=== PATIENT | female | born 1955 | race Two or more races ===

== ENCOUNTER 2017-05-31 20:27 | Inpatient (IN) | payer MEDICAID ==
[~2017-05-31] VITALS: Ht 149.9 cm; Wt 71.3 kg
[~2017-05-31 20:27] MED LIST: ALEN70TA5 PO; ATOR20TA9 PO; CHOL500045 PO; SITA100T PO
[2017-05-31] MEDS ORDERED: SODIUM CHLORIDE FLUSH 10ML SYR IVF ONE ×2 (21:00)
[2017-05-31] MEDS ORDERED: ACETAMINOPHEN 325 MG TABLET PO ONE (21:00)
[2017-05-31] MEDS ORDERED: SODIUM CHLORIDE 0.9% 1,000ML IVBOLUS ONE ×2 (21:00→22:30)
[2017-05-31] MEDS ORDERED: ONDANSETRON 2MG/ML, 2ML IVPush ONE (21:00)
[2017-05-31 21:08] LABS: RAPID INFLUENZA A Negative (Negative); RAPID INFLUENZA B Negative (Negative)
[2017-05-31] MEDS ORDERED: ACETAMINOPHEN 325 MG TABLET ONE (21:08)
[2017-05-31 21:13] LABS: PH, VENOUS 7.443 pH (7.320-7.420)
[2017-05-31] MEDS ORDERED: METF500T27 PO (21:13)
[2017-05-31 21:15] LABS: BASOPHILS # (AUTO) 0.01 x10^3/uL (0-0.1); BASOPHILS % (AUTO) 0 % (0-1); EOSINOPHILS % (AUTO) 0 % (1-7); LYMPHOCYTES # (AUTO) 0.99 x10^3/uL (1-3.4); LYMPHOCYTES % (AUTO) 6 % (22-44); MD NO; MEAN CORPUSCULAR HEMOGLOBIN 25.6 pg (27.0-34.8); MEAN CORPUSCULAR HGB CONC 32.5 g/dL (32.4-35.8); MEAN CORPUSCULAR VOLUME 78.6 fL (80-100); MEAN PLATELET VOLUME 10.1 fL (7.4-10.4); MONOCYTES # (AUTO) 0.72 x10^3/uL (0.2-0.8); MONOCYTES % (AUTO) 5 % (2-9); NEUTROPHILS # (AUTO) 14.14 x10^3/uL (1.8-6.8); NEUTROPHILS % (AUTO) 89 % (42-75); PLATELET COUNT 213 x10^3/uL (130-400); RED BLOOD COUNT 4.82 x10^6/uL (3.82-5.3); RED CELL DISTRIBUTION WIDTH 15.4 % (9.6-15.2)
[2017-05-31 21:16] LABS: ANION GAP 11 mmol/L (5-15); CALCIUM 8.5 mg/dL (8.5-10.1); CHLORIDE 95 mmol/L (98-107)
[2017-05-31 21:22] LABS: ACETONE, SERUM Moderate(40mg/dL) mg/dL (Negative)
[2017-05-31] MEDS ORDERED: IBUPROFEN 200 MG TABLET PO ONE (22:00)
[2017-05-31] MEDS ORDERED: IBUPROFEN 200 MG TABLET ONE (22:08)
[2017-05-31 22:17] LABS: MICROSCOPIC AUTO
[2017-05-31 22:19] LABS: CULTURE INDICATED? YES
[2017-05-31] MEDS ORDERED: CEFTRIAXONE PMX 1GM/50ML 50 ML ONE (22:24)
[2017-05-31] MEDS ORDERED: CEFTRIAXONE PMX 1GM/50ML 50 ML IV ONE (22:30)
[2017-05-31] MEDS ORDERED: ASPI-496 PO (22:37)
[2017-05-31] MEDS ORDERED: INSULIN DETEMIR 100 UNITS/ML, PEN SQ-INSULIN SCH (23:00)
[2017-05-31] MEDS ORDERED: ONDANSETRON 2MG/ML, 2ML IVPush PRN (23:00)
[2017-05-31] MEDS ORDERED: hydrALAzine 20 MG/ML, 1ML IVPush PRN (23:00)
[2017-05-31] MEDS: CEFTRIAXONE PMX 1GM/50ML 50 ML IV SCH (23:00)
[2017-05-31] MEDS ORDERED: ENOXAPARIN 40 MG/0.4 ML ONE (23:14)
[2017-05-31] MEDS ORDERED: NS + 20MEQ KCL 1,000 ML IV ONE (23:14)
[2017-05-31] MEDS: NS + 20MEQ KCL 1,000 ML IV SCH (23:29)
[2017-05-31] MEDS: ENOXAPARIN 40 MG/0.4 ML SQ SCH (23:29)
[2017-05-31 23:57] VITALS: BP 107/69
[2017-06-01] MEDS: INSULIN ASPART 100 UNITS/ML, PEN SQ-INSULIN SCH ×5 (00:53→21:35)
[2017-06-01 01:30] VITALS: BP 107/69
[2017-06-01 01:31] VITALS: BP 107/69
[2017-06-01 05:42] LABS: BASOPHILS # (AUTO) 0.04 x10^3/uL (0-0.1); BASOPHILS % (AUTO) 0 % (0-1); EOSINOPHILS # (AUTO) 0.02 x10^3/uL (0-0.4); EOSINOPHILS % (AUTO) 0 % (1-7); LYMPHOCYTES # (AUTO) 2.09 x10^3/uL (1-3.4); LYMPHOCYTES % (AUTO) 14 % (22-44); MD NO; MEAN CORPUSCULAR HEMOGLOBIN 25.8 pg (27.0-34.8); MEAN CORPUSCULAR HGB CONC 32.7 g/dL (32.4-35.8); MEAN CORPUSCULAR VOLUME 78.8 fL (80-100); MEAN PLATELET VOLUME 9.9 fL (7.4-10.4); MONOCYTES # (AUTO) 0.59 x10^3/uL (0.2-0.8); MONOCYTES % (AUTO) 4 % (2-9); NEUTROPHILS # (AUTO) 11.93 x10^3/uL (1.8-6.8); NEUTROPHILS % (AUTO) 81 % (42-75); PLATELET COUNT 210 x10^3/uL (130-400); RED BLOOD COUNT 4.53 x10^6/uL (3.82-5.3); RED CELL DISTRIBUTION WIDTH 15.6 % (9.6-15.2)
[2017-06-01 05:47] LABS: CHLORIDE 106 mmol/L (98-107)
[2017-06-01 06:33] LABS: ANION GAP 11 mmol/L (5-15); CALCIUM 7.7 mg/dL (8.5-10.1)
[2017-06-01] MEDS: NS + 20MEQ KCL 1,000 ML IV SCH (07:00)
[2017-06-01 07:35] VITALS: BP 122/59
[2017-06-01] MEDS: ASPIRIN 81 MG TABLET EC PO SCH (08:12)
[2017-06-01] MEDS ORDERED: metFORMIN XR 500 MG TAB.ER.24H PO SCH (09:00)
[2017-06-01] MEDS: INSULIN DETEMIR 100 UNITS/ML, PEN SQ-INSULIN SCH (09:21)
[2017-06-01 13:14] VITALS: BP 131/69
[2017-06-01] MEDS: ACETAMINOPHEN 325 MG TABLET PO PRN (18:02)
[2017-06-01 20:21] VITALS: BP 103/67
[2017-06-01] MEDS: CEFTRIAXONE PMX 1GM/50ML 50 ML IV SCH (23:03)
[2017-06-01] MEDS: ENOXAPARIN 40 MG/0.4 ML SQ SCH (23:04)
[2017-06-02 05:14] LABS: BASOPHILS # (AUTO) 0.02 x10^3/uL (0-0.1); BASOPHILS % (AUTO) 0 % (0-1); EOSINOPHILS # (AUTO) 0.02 x10^3/uL (0-0.4); EOSINOPHILS % (AUTO) 0 % (1-7); LYMPHOCYTES # (AUTO) 1.63 x10^3/uL (1-3.4); LYMPHOCYTES % (AUTO) 12 % (22-44); MD NO; MEAN CORPUSCULAR HEMOGLOBIN 26.2 pg (27.0-34.8); MEAN CORPUSCULAR HGB CONC 33.1 g/dL (32.4-35.8); MEAN PLATELET VOLUME 9.7 fL (7.4-10.4); MONOCYTES % (AUTO) 5 % (2-9); NEUTROPHILS # (AUTO) 11.08 x10^3/uL (1.8-6.8); NEUTROPHILS % (AUTO) 82 % (42-75); PLATELET COUNT 210 x10^3/uL (130-400); RED BLOOD COUNT 4.32 x10^6/uL (3.82-5.3); RED CELL DISTRIBUTION WIDTH 15.7 % (9.6-15.2)
[2017-06-02] MEDS: INSULIN ASPART 100 UNITS/ML, PEN SQ-INSULIN SCH ×4 (06:55→22:18)
[2017-06-02 08:29] VITALS: BP 119/74
[2017-06-02] MEDS: INSULIN DETEMIR 100 UNITS/ML, PEN SQ-INSULIN SCH (09:26)
[2017-06-02] MEDS: ASPIRIN 81 MG TABLET EC PO SCH (09:26)
[2017-06-02 14:13] VITALS: BP 111/63
[2017-06-02 20:13] VITALS: BP 138/61
[2017-06-02] MEDS: CEFTRIAXONE PMX 1GM/50ML 50 ML IV SCH (22:34)
[2017-06-03] MEDS: ACETAMINOPHEN 325 MG TABLET PO PRN ×2 (01:26→21:18)
[2017-06-03 01:36] VITALS: BP 115/60
[2017-06-03 02:52] LABS: BASOPHILS # (AUTO) 0.02 x10^3/uL (0-0.1); BASOPHILS % (AUTO) 0 % (0-1); EOSINOPHILS # (AUTO) 0.04 x10^3/uL (0-0.4); EOSINOPHILS % (AUTO) 0 % (1-7); LYMPHOCYTES # (AUTO) 1.84 x10^3/uL (1-3.4); LYMPHOCYTES % (AUTO) 16 % (22-44); MD NO; MEAN CORPUSCULAR HEMOGLOBIN 25.9 pg (27.0-34.8); MEAN CORPUSCULAR HGB CONC 32.8 g/dL (32.4-35.8); MEAN CORPUSCULAR VOLUME 78.9 fL (80-100); MEAN PLATELET VOLUME 9.9 fL (7.4-10.4); MONOCYTES # (AUTO) 0.92 x10^3/uL (0.2-0.8); MONOCYTES % (AUTO) 8 % (2-9); NEUTROPHILS # (AUTO) 9.05 x10^3/uL (1.8-6.8); NEUTROPHILS % (AUTO) 76 % (42-75); PLATELET COUNT 263 x10^3/uL (130-400); RED CELL DISTRIBUTION WIDTH 15.1 % (9.6-15.2)
[2017-06-03 02:59] LABS: ANION GAP 8 mmol/L (5-15); CALCIUM 8.2 mg/dL (8.5-10.1); CHLORIDE 105 mmol/L (98-107); CREATININE 0.97 mg/dL (0.55-1.02)
[2017-06-03] MEDS: INSULIN ASPART 100 UNITS/ML, PEN SQ-INSULIN SCH ×4 (07:49→21:00)
[2017-06-03 07:50] VITALS: BP 116/63
[2017-06-03] MEDS: ASPIRIN 81 MG TABLET EC PO SCH (07:50)
[2017-06-03] MEDS: INSULIN DETEMIR 100 UNITS/ML, PEN SQ-INSULIN SCH (07:50)
[2017-06-03] MEDS ORDERED: POTASSIUM PHOSPHATE 44 MEQ in SODIUM CHLORIDE 0.9% 500 ML IV ONE (10:00)
[2017-06-03 13:50] VITALS: BP 112/69
[2017-06-03 20:30] VITALS: BP 119/68
[2017-06-03] MEDS: CEFTRIAXONE PMX 1GM/50ML 50 ML IV SCH (22:53)
[2017-06-04 02:27] VITALS: BP 127/63
[2017-06-04 08:00] VITALS: BP 150/85
[2017-06-04] MEDS: INSULIN ASPART 100 UNITS/ML, PEN SQ-INSULIN SCH ×4 (08:03→21:09)
[2017-06-04] MEDS: ASPIRIN 81 MG TABLET EC PO SCH (08:03)
[2017-06-04] MEDS: INSULIN DETEMIR 100 UNITS/ML, PEN SQ-INSULIN SCH (08:03)
[2017-06-04] MEDS: ACETAMINOPHEN 325 MG TABLET PO PRN ×2 (12:19→19:42)
[2017-06-04 15:20] VITALS: BP 100/63
[2017-06-04 21:09] VITALS: BP 131/74
[2017-06-04] MEDS: CEFTRIAXONE PMX 1GM/50ML 50 ML IV SCH (23:45)
[2017-06-05 02:16] VITALS: BP 135/75
[2017-06-05] MEDS: ASPIRIN 81 MG TABLET EC PO SCH (07:39)
[2017-06-05] MEDS: INSULIN DETEMIR 100 UNITS/ML, PEN SQ-INSULIN SCH ×2 (07:39→20:33)
[2017-06-05] MEDS: INSULIN ASPART 100 UNITS/ML, PEN SQ-INSULIN SCH ×4 (07:40→20:33)
[2017-06-05 08:30] VITALS: BP 138/71
[2017-06-05 13:40] VITALS: BP 120/69
[2017-06-05 20:07] VITALS: BP 132/81
[2017-06-05] MEDS: CEFTRIAXONE PMX 1GM/50ML 50 ML IV SCH (23:01)
[2017-06-05] MEDS: ACETAMINOPHEN 325 MG TABLET PO PRN (23:04)
[2017-06-06 02:02] VITALS: BP 106/65
[2017-06-06 06:05] LABS: BASOPHILS # (AUTO) 0.03 x10^3/uL (0-0.1); BASOPHILS % (AUTO) 1 % (0-1); EOSINOPHILS # (AUTO) 0.19 x10^3/uL (0-0.4); EOSINOPHILS % (AUTO) 3 % (1-7); LYMPHOCYTES # (AUTO) 1.82 x10^3/uL (1-3.4); LYMPHOCYTES % (AUTO) 30 % (22-44); MD NO; MEAN CORPUSCULAR HEMOGLOBIN 25.7 pg (27.0-34.8); MEAN CORPUSCULAR HGB CONC 32.6 g/dL (32.4-35.8); MEAN CORPUSCULAR VOLUME 78.8 fL (80-100); MEAN PLATELET VOLUME 9.2 fL (7.4-10.4); MONOCYTES # (AUTO) 0.73 x10^3/uL (0.2-0.8); MONOCYTES % (AUTO) 12 % (2-9); NEUTROPHILS # (AUTO) 3.28 x10^3/uL (1.8-6.8); NEUTROPHILS % (AUTO) 54 % (42-75); PLATELET COUNT 296 x10^3/uL (130-400); RED BLOOD COUNT 4.46 x10^6/uL (3.82-5.3)
[2017-06-06 06:13] LABS: CHLORIDE 107 mmol/L (98-107)
[2017-06-06 06:37] LABS: ANION GAP 10 mmol/L (5-15); CALCIUM 8.4 mg/dL (8.5-10.1); CREATININE 1.01 mg/dL (0.55-1.02)
[2017-06-06] MEDS: ASPIRIN 81 MG TABLET EC PO SCH (07:48)
[2017-06-06] MEDS: INSULIN DETEMIR 100 UNITS/ML, PEN SQ-INSULIN SCH ×2 (07:49→20:45)
[2017-06-06] MEDS: INSULIN ASPART 100 UNITS/ML, PEN SQ-INSULIN SCH ×4 (07:49→20:45)
[2017-06-06 08:00] VITALS: BP 119/76
[2017-06-06 14:00] VITALS: BP 118/70
[2017-06-06 19:42] VITALS: BP 109/72
[2017-06-06 20:15] LABS: MICROSCOPIC NOT IND
[2017-06-06 20:18] LABS: CULTURE INDICATED? NO
[2017-06-07 01:18] VITALS: BP 114/65
[2017-06-07 08:00] VITALS: BP 104/66
[2017-06-07] MEDS: INSULIN ASPART 100 UNITS/ML, PEN SQ-INSULIN SCH ×2 (08:04→11:33)
[2017-06-07] MEDS: ASPIRIN 81 MG TABLET EC PO SCH (08:05)
[2017-06-07] MEDS: INSULIN DETEMIR 100 UNITS/ML, PEN SQ-INSULIN SCH (08:05)
[2017-06-07] MEDS ORDERED: METF500T4 PO (09:02)
[2017-06-07] MEDS ORDERED: CIPR500T87 PO (09:05)
[2017-06-07] MEDS ORDERED: CEFTRIAXONE PMX 2GM/50ML 50 ML IV SCH (09:30)
[2017-06-07 13:07] VITALS: BP 110/73
== END 2017-06-07 14:46 | disposition home or self-care (01) | DRG 871 ==
LOC: ED 22:29 → SUATTDRO 22:49 → EDIP 22:50 → 4EST 23:45 → 4NOR 06-02 00:33 → DCLOUNGE 06-07 14:15
PROVIDERS: ADMIT Hospitalist; ATTEND Hospitalist
DX: A41.51 Sepsis due to Escherichia coli [E. coli] (principal); N17.0 Acute kidney failure with tubular necrosis; N39.0 Urinary tract infection, site not specified; E87.1 Hypo-osmolality and hyponatremia; E11.65 Type 2 diabetes mellitus with hyperglycemia; D63.8 Anemia in other chronic diseases classified elsewhere; E83.39 Other disorders of phosphorus metabolism; I10 Essential (primary) hypertension; Z90.49 Acquired absence of other specified parts of digestive tract; Z98.891 History of uterine scar from previous surgery
CPT/HCPCS: 36415; 71010; 80048; 81001; 81003; 82010; 82040; 82803; 82962; 83605; 83735; 84100; 85025; 87040; 87077; 87086; 87186; 87400; 93306; 96361; 96365; 96372; J0696; J1650; J1815; J3480; J7030; J7040

== ENCOUNTER → 2017-07-24 | Outpatient (CLI) | payer MEDICAID ==
[~2017-07-24] MED LIST changes: +ASPI-496 PO; +CIPR500T87 PO; +METF500T27 PO; +METF500T4 PO
== END | disposition home or self-care (01) ==
LOC: CFH 16:13
PROVIDERS: ATTEND Family Medicine
DX: Z12.31 Encounter for screening mammogram for malignant neoplasm of breast (principal)
CPT/HCPCS: 77067